=== PATIENT | male | born 1985 | race Caucasian/White ===

== ENCOUNTER 2017-01-26 16:40 | Inpatient (IN) | payer OTHER ==
[~2017-01-26] VITALS: Ht 167.6 cm; Wt 70.3 kg
[2017-01-26 16:42] VITALS: BP 130/93
--- NOTE | 2017-01-26 18:45 | NUR ---
PT BIBA TO BED 3 AT THIS TIME.
--- NOTE | 2017-01-26 19:24 | NUR ---
Pt report given to LYN QUEEN.
--- NOTE | 2017-01-26 19:29 | NUR ---
31Y/O M [place] FROM [place], FOUND IN CAR BY PD. PT ADMITS OF DRINKING 1/2 PINT OF BEER; REDNESS NOTED TO LEFT EYE; PER EMS, PT FELL, UNKNOWN LOC. PT DENIES HX AT THIS TIME.
[2017-01-26] MEDS ORDERED: ONDANSETRON 4 MG TAB PO ONE (21:00)
[2017-01-26] MEDS ORDERED: METOCLOPRAMIDE 10 MG/2 ML INJ VIAL IVP ONE (21:50)
[2017-01-26] MEDS: NACL 0.9% 1,000 ML IV SCH (22:43)
[2017-01-26] MEDS ORDERED: LORazepam 2 MG/ML VIAL IVP PRN (22:45)
[2017-01-26] MEDS ORDERED: ACETAMINOPHEN 325 MG TAB PO PRN (22:45)
[2017-01-26] MEDS ORDERED: ONDANSETRON 4 MG/2 ML VIAL IVP PRN (22:45)
[2017-01-26] MEDS ORDERED: HYDROcodone/APAP 5/325 MG 1 TAB TAB PO PRN (22:45)
[2017-01-26] MEDS ORDERED: MORPHINE SULFATE 2 MG/ML SYR IVP PRN (22:45)
[2017-01-26] MEDS ORDERED: ALBUTEROL 0.083% 2.5 MG/3 ML NEBU INH PRN (22:45)
[2017-01-26] MEDS ORDERED: KCL 20 MEQ/WATER INJ PREMIX 200 ML IV SCH (23:00)
[2017-01-26] MEDS ORDERED: LORazepam 1 MG TAB PO PRN (23:00)
--- NOTE | 2017-01-26 23:14 | NUR ---
ERMD NOTIFIED OF POTASSIUM LEVEL. WAS INSTRUCTED TO GIVE PATIENT ORANGE JUICE AT THIS TIME.
--- NOTE | 2017-01-26 23:18 | NUR ---
Patient will be admitted to care of DR. AYALA. Admited to [facility]. Will go to room 106B. Belongings list completed. Report to LYN DAS.
--- NOTE | 2017-01-26 23:22 | NUR ---
PT TAKEN TO MED SURG BY EMT VIA WHEEL CHAIR. NO S/S OF DISTRESS NOTED.
--- NOTE | 2017-01-26 23:33 | NUR ---
RECEIVED FROM ER PER WHEELCHAIR AWAKE AND ALERT. ABLE TO VERBALIZE SIMPLE NEEDS. ORIENTED X 3. CARE PLANS FOR THE NIGHT DISCUSSED WITH HIM AND CALL LIGHT USE ORIENTED. IVF SITE TO RFA #20 INTACT . NOTED WITH 1 CM ABRASION TO THE LEFT MEDIAL EYE RT SUSTAINED INJURY FROM OUTSIDE. NO BLEEDING. RAPID RESPONSE ORIENTATION TO PT DONE. DX. OF ALCOHOL INTOXICATION, LEFT MAXILLARY FRACTURE AND CONCUSSION. PT. FOLLOWS SIMPLE COMMANDS WELL. COOPERATIVE.
[2017-01-27 00:08] VITALS: BP 112/60
--- NOTE | 2017-01-27 01:09 | NUR ---
MEDICATED WITH K RIDER ORDERED RT K LEVEL OF 3. ATIVAN 1 MG. P.O. ADMINISTERED RT PT. KEEPS WAKING UP SUDDENLY FROM SLEEP AND SITS UP IN BED. RESTLESS. WILL MONITOR.
[2017-01-27 04:00] VITALS: BP 135/79
--- NOTE | 2017-01-27 04:50 | NUR ---
SLEEPING WELL AT THIS TIME. WAKES UP EASILY WHEN TOUCHED. ABLE TO VERBALIZE NEEDS . PT. K RIDER STILL ON GOING. IVF SITE PATENT AND NO INFILTRATION.
[2017-01-27] MEDS: LORazepam 1 MG TAB PO SCH ×3 (06:00→20:06)
--- NOTE | 2017-01-27 06:00 | NUR ---
PT. AWAKE AT THIS TIME AND COMPLAINED OF NAUSEA. MEDICATED WITH ZOFRAN IVP. PT. MORE ABLE TO VERBALIZE NEEDS WELL. COMPLAINED OF BEING DIZZY. REMINDED HIM THAT HE DRANK ONE WHOLE BOTTLE OF VODKA LAST NIGHT "AH, YES..I WILL NOT DRINK THAT STUFF AGAIN."
--- NOTE | 2017-01-27 06:33 | NUR ---
PT. COMPLAINED THAT HE CAN NOT HEAR ON HIS RIGHT EAR AND THAT WHEN IT WILL COME BACK? ABLE TO VERBALIZE NEEDS WELL AT THIS TIME. A/O X 4. TELEMETRY MONITORING. NO SOB.
--- NOTE | 2017-01-27 07:29 | NUR ---
ENDORSED TO THE NEXT RN FOR CONTINUITY OF CARE. AWAKE AND ALERT. NO COMPLAINTS DONE. TELEMETRY MONITORING.
--- NOTE | 2017-01-27 07:30 | NUR ---
REPORT RECEIVED FROM POWERTRAIN ENGINEER, PT SLEEPING QUIETLY, RESP EVEN UNLABORED ON ROOM AIR IN NAD, AROUSES EASILY BY VOICE, AOX4, MOVES ALL EXT X4, + SWELLING NOTED TO LEFT EYE, PLAN OF CARE DISCUSSED, PT FIDGETING APPEARS ANXIOUS, STATES HE WANTS TO LEAVE SOON POSSIBLE, EXPLAINED DIAGNOSIS, AND NEED FOR MONITORING OF HIS CONDITION, ENCOURAGED TO STAY PER MD ORDER, PT VERBALIZED UNDERSTANDING, CALL FERGUSON WITHIN REACH, SIDE RAILS UP X2, WILL CONTINUE TO MONITOR.
[2017-01-27 08:00] VITALS: BP 140/79
[2017-01-27] MEDS ORDERED: MAG SULF 2000 MG/WATER PREMIX 50 ML IV SCH (08:10)
[2017-01-27] MEDS ORDERED: POTASSIUM CHLORIDE 10 MEQ TABER PO SCH (08:10)
--- NOTE | 2017-01-27 08:23 | NUR ---
PATIENT HAS BEEN SCREENED AND CATEGORIZED LOW NUTRITION RISK. PATIENT WILL BE SEEN WITHIN 7 DAYS OF ADMISSION. 02/02/[address]
[2017-01-27] MEDS ORDERED: FOLIC ACID 1 MG TAB PO SCH (09:00)
[2017-01-27] MEDS ORDERED: MULTIVITAMIN 1 TAB PO SCH (09:00)
[2017-01-27] MEDS ORDERED: THIAMINE 100 MG TAB PO SCH (09:00)
--- NOTE | 2017-01-27 09:30 | NUR ---
PT SLEEPING QUIELTY IN NAD, RESP EVEN UNLABORED, SKIN WARM DRY COLOR WNL, IVF INFUSING WELL, SITE CLEAR, PT REMAINS ON MILLING MACHINE TENDER, CALL FERGUSON WITHIN REACH, SIDE RAILS UP X2, WILL CONTINUE TO MONITOR.
[2017-01-27] MEDS: NACL 0.9% 1,000 ML IV SCH ×2 (10:19→20:07)
[2017-01-27] MEDS ORDERED: LORazepam 2 MG/ML VIAL IVP PRN (11:45)
[2017-01-27 12:00] VITALS: BP 119/80
--- NOTE | 2017-01-27 12:18 | NUR ---
PT AWAKE AND RESTING IN BED, RESTLESS, ARMS SLIGHTLY TREMULOUS, SCHEDULED ATIVAN GIVEN AT THIS TIME, PT STATES "I'M READY TO GO HOME NOW", PLAN OF CARE REVIEWED AGAIN, DX REVIEWED, REITERATED IMPORTANCE OF STAYING FOR OBSERVATION, PT AGREES TO STAY AT THIS TIME, CALL FERGUSON WITHIN REACH, DENIES OTHER NEEDS, WILL CONTINUE TO MONITOR.
--- NOTE | 2017-01-27 13:15 | NUR ---
DR SPEARS AT BEDSIDE FOR EVAL, PT WANTS TO GO AMA, RISKS EXPLAINED AND DISCUSSED BY DR SPEARS, PT SIGNED AMA FORM.
--- NOTE | 2017-01-27 13:31 | NUR ---
PT CHANGED HIS MIND AND STATES I WILL STAY HERE FOR NOW BECAUSE I FEEL DIZZY, PT REMAINS ON LEAD PROGRAMMER, CALL FERGUSON WITHIN REACH, IVF CONTINUE TO INFUSE, SITE CLEAR, WILL CONTINUE TO MONITOR.
--- NOTE | 2017-01-27 15:00 | NUR ---
PT SLEEPING QUIETLY, RESP EVEN UNLABORED ON ROOM AIR, SKIN COLOR WNL, PT REMAINS ON PHARMACIST'S AIDE, CALL FERGUSON WITHIN REACH, SIDE RAILS UP X2, WILL CONTINUE TO MONITOR.
[2017-01-27 16:00] VITALS: BP 121/78
--- NOTE | 2017-01-27 18:06 | NUR ---
PT SITTING UP USING URINAL, RESP EVEN UNLABORED ON ROOM AIR IN NAD, SKIN WARM DRY COLOR WNL, IVF INFUSING WELL, SITE CLEAR, PT DENIES PAIN OR DISCOMFORT, DENIES ANY IMMEDIATE NEEDS, PT REMAINS ON SOLDERER BARREL RIBS, CALL FERGUSON WITHIN REACH, BED LOCKED IN LOW POSITION, SIDE RAIL UP X2, WILL CONTINUE TO MONITOR.
--- NOTE | 2017-01-27 19:21 | NUR ---
REPORT GIVEN TO ASSOCIATE PROFESSOR OF LIBRARY SCIENCE, PT IN STABLE CONDITION.
--- NOTE | 2017-01-27 19:22 | NUR ---
RECEIVED REPORT FROM DAY RN FOR CONTINUITY OF CARE. PATIENT IS A&OX4, DISCUSSED PLAN OF CARE WITH PATIENT, VERBALIZED UNDERSTANDING. SHIFT ASSESSMENT DONE, VS TAKEN, STABLE CONDITION. NO S/S OF RESPIRATORY DISTRESS NOTED ON ROOM AIR. PATIENT DENIES PAIN AT THIS TIME. DENIES NAUSEA OR VOMITING. IV PATENT AND INFUSING FLUIDS WELL. SAFETY PRECAUTIONS ENFORCED. CALL LIGHT WITHIN REACH. WILL CONTINUE TO MONITOR.
[2017-01-27 20:00] VITALS: BP 130/77
--- NOTE | 2017-01-27 20:06 | NUR ---
DUE MEDICATIONS ADMINISTERED. PROVIDED PT WITH FOOD AND DRINK, TOLERATED WELL. SAFETY MEASURES ENFORCED. CALL LIGHT WITHIN REACH.
--- NOTE | 2017-01-27 22:15 | NUR ---
PATIENT SLEEPING AT THIS TIME. NO S/S OF DISTRESS OR DISCOMFORT NOTED. CALL LIGHT WITHIN REACH. WILL CONTINUE TO MONITOR.
[2017-01-28] VITALS: BP 137/32
--- NOTE | 2017-01-28 00:03 | NUR ---
VS TAKEN, STABLE. PATIENT DENIES PAIN AT THIS TIME. SAFETY MEASURES ENFORCED. CALL LIGHT WITHIN REACH. WILL CONTINUE TO MONITOR.
--- NOTE | 2017-01-28 02:03 | NUR ---
PATIENT SLEEPING AT THIS TIME. NO S/S OF DISTRESS OR DISCOMFORT NOTED. WILL CONTINUE TO MONITOR.
[2017-01-28 04:00] VITALS: BP 139/74
[2017-01-28] MEDS: LORazepam 1 MG TAB PO SCH (04:28)
--- NOTE | 2017-01-28 04:28 | NUR ---
VS TAKEN, STABLE. DUE MEDICATIONS ADMINISTERED, TOLERATED WELL. ALL NEEDS MET AT THIS TIME. CALL LIGHT WITHIN REACH.
--- NOTE | 2017-01-28 06:00 | NUR ---
PATIENT IS SLEEPING, NO S/S OF DISTRESS OR DISCOMFORT NOTED. SAFETY MEASURES ENFORCED, CALL LIGHT WITHIN REACH.
--- NOTE | 2017-01-28 07:13 | NUR ---
ENDORSED PATIENT TO DAY RN FOR CONTINUITY OF CARE, PATIENT IS IN STABLE CONDITION.
--- NOTE | 2017-01-28 07:30 | NUR ---
REPORT RECEIVED FROM HEALTH SUPPORT SPECIALIST, PT ASLEEP AROUSES EASILY BY VOICE, RESP EVEN UNLABORED IN NAD, PLAN OF CARE REVIEWED, PT STATES " I'M READY TO GO HOME NOW". PT EXPLAINED AND EDUCATED ON HIS DX, RISKS FOR GOING HOME, STILL STATES "I WANT TO LEAVE", DR WOOD MADE AWARE.
[2017-01-28 07:40] VITALS: BP 142/76
--- NOTE | 2017-01-28 07:50 | NUR ---
PT REVIEWED AND SIGNED AMA FORM, RETURNING PRECAUTIONS REVIEWED, ENCOURAGED TO RETURN TO ER IF CONCERNED, IV DC'D, CATH TIP INTACT, BLEEDING CONTROLLED, PT UP OUT OF BED WITHOUT PROBLEM, PT AAOX4, RESP EVEN UNLABORED, SPEAKS CLEARLY WITHOUT PROBLEM, MOVES ALL EXT, REFUSES TO STAY LONGER FOR COMPLETE SHIFT ASSESSMENT, DENIES FEELING DIZZY OR LIGHTHEADED, WALKS SLOWLY WITH STEADY GAIT, ALL PERSONAL BELONGINGS TAKEN BY PT, ESCORTED OUT TO FRONT OF HOSPITAL.
[2017-01-28] MEDS ORDERED: SODIUM PHOS / POTASSIUM PHOS 1 PKT PDR PO SCH (08:00)
--- NOTE | 2017-01-30 08:51 | NUR ---
[facility] FAXED H&P ER REPORT AND DISCHARGE SUMMARY TO [facility] [phone] PHONE YASMINE [phone]
== END 2017-01-28 07:55 | disposition left against medical advice (07) | DRG 57 ==
LOC: MED 16:40 → MTU 22:37
PROVIDERS: ADMIT Family Medicine; ATTEND Family Medicine
DX: S02.19XA Other fracture of base of skull, initial encounter for closed fracture (principal); N17.0 Acute kidney failure with tubular necrosis; G92 Toxic encephalopathy; S02.40DA Maxillary fracture, left side, initial encounter for closed fracture; E83.42 Hypomagnesemia; R80.9 Proteinuria, unspecified; F12.90 Cannabis use, unspecified, uncomplicated; Z53.21 Procedure and treatment not carried out due to patient leaving prior to being seen by health care provider; F10.129 Alcohol abuse with intoxication, unspecified; Y90.8 Blood alcohol level of 240 mg/100 ml or more; E78.5 Hyperlipidemia, unspecified; E87.6 Hypokalemia; W19.XXXA Unspecified fall, initial encounter; Y93.89 Activity, other specified; Y92.89 Other specified places as the place of occurrence of the external cause; Y99.8 Other external cause status

== ENCOUNTER 2017-01-28 18:57 | Emergency (ER) | payer OTHER ==
[~2017-01-28] VITALS: Ht 162.6 cm; Wt 71.7 kg
[2017-01-28 19:09] VITALS: BP 133/77
--- NOTE | 2017-01-28 19:54 | NUR ---
Patient being evaluated by physician
--- NOTE | 2017-01-28 20:26 | NUR ---
PT TAKEN TO BED 7
--- NOTE | 2017-01-28 20:45 | NUR ---
PT AAO, SKIN WARM TO TOUCH RESP. EVEN, NOTED BRUISE ON LEFT EYE, PURPLISH TO PINKISH IN COLOR, NO VOMITTING NOTED AT THIS TIME, PER PT HE CANNT HEAR ON RIGHT EAR, PT AAO.
--- NOTE | 2017-01-28 20:47 | NUR ---
TALKED TO DR. VALDIVIA MADE AWARE PT WANTS TO EAT PER MD HE CAN EAT, WILL ORDER BRIONNA
--- NOTE | 2017-01-28 20:49 | NUR ---
PT EATING SANDWHICH AT THIS TIME, WITH GOOD APPETITE, NO DISTRESS NOTED.
[2017-01-28 21:05] VITALS: BP 131/76
--- NOTE | 2017-01-28 21:05 | NUR ---
Patient discharged with v/s stable. Written and verbal after care instructions given and explained. Patient alert, oriented and verbalized understanding of instructions. Ambulatory with steady gait. All questions addressed prior to discharge. ID band removed. Patient advised to follow up with PMD. Rx of ATIVAN 1MG, MECLIZINE 12.5MG given. Patient educated on indication of medication including possible reaction and side effects. Opportunity to ask questions provided and answered.
== END 2017-01-28 21:05 | disposition home or self-care (01) ==
LOC: MED 19:44
DX: S02.40DA Maxillary fracture, left side, initial encounter for closed fracture (principal); S06.9X0A Unspecified intracranial injury without loss of consciousness, initial encounter; S02.19XA Other fracture of base of skull, initial encounter for closed fracture; F10.239 Alcohol dependence with withdrawal, unspecified; X58.XXXA Exposure to other specified factors, initial encounter; Y93.89 Activity, other specified; Y92.89 Other specified places as the place of occurrence of the external cause; Y99.8 Other external cause status
CPT/HCPCS: 99283; J7030